=== PATIENT | female | born 1990 | race African-American/Black ===

== ENCOUNTER 2017-11-15 10:53 | Inpatient (IN) | payer SELFPAY ==
[~2017-11-15] VITALS: Ht 165.1 cm; Wt 82.7 kg
[~2017-11-15 10:53] MED LIST: IMPLANON68 MG ID; LORTAB 5/500 501 TAB PO
[2017-12-11] MEDS ORDERED: PRENATAL1 TA7 PO (22:16)
[2017-12-24] VITALS (61 sets, daily range): BP systolic 84–118; BP diastolic 47–80; PULSE 60–98; TEMP 97.2–98.4
[2017-12-24 07:51] LABS: BASO # 0.1 (0.0-0.2); BASO % 0.3 % (0.0-2.0); EOS # 0.2 (0.0-0.7); EOS % 1.3 % (0-4.0); GRAN # 12.2 (1.4-6.5); GRAN % 71.3 % (42.2-75.2); HEMATOCRIT 37.8 % (37.0-47.0); HEMOGLOBIN 13.1 g/dl (12.5-16.0); LYMPH # 3.5 (1.2-3.4); LYMPH % 20.3 % (20.0-51.0); MEAN CELL VOLUME 94 fl (80.0-100.0); MEAN CORPUSCULAR HEMOGLOBIN 33 pg (27.0-31.0); MEAN CORPUSCULAR HGB CONC 35 g/dl (33.0-37.0); MEAN PLATELET VOLUME 10.6 fl (7.4-10.4); MONO % 6.1 % (1.7-9.3); PLATELET COUNT 248 K/mm3 (130-400); RED BLOOD COUNT 4.01 M/mm3 (4.10-5.30); REDCELL DISTRIBUTION WIDTH-CV 14.4 % (11.5-14.5)
[2017-12-25] VITALS (17 sets, daily range): BP systolic 97–119; BP diastolic 53–77; PULSE 62–106; TEMP 98–98.6
[2017-12-26 08:30] VITALS: BP 109/77; PULSE 77; TEMP 98.2
[2017-12-26] MEDS ORDERED: IBU600 MG PO (08:36)
[2017-12-26] MEDS ORDERED: PERCOCET 325 MG1 TA2 PO (08:36)
== END 2017-12-26 12:20 | disposition home or self-care (01) | DRG 775 ==
LOC: EDSTATUS 12-23 09:14 → LDR 12-23 09:18 → LDRO 12-23 10:53 → LDR 12-24 07:00 → OB 12-25 03:30
PROVIDERS: Obstetrics & Gynecology
PROC: 10E0XZZ Delivery of Products of Conception, External Approach (ICD-10-PCS; principal; 2017-12-25)
PROC: 3E033VJ Introduction of Other Hormone into Peripheral Vein, Percutaneous Approach (ICD-10-PCS; 2017-12-25)
PROC: 10E0XZZ Delivery of Products of Conception, External Approach (ICD-10-PCS; 2017-12-25)
DX: O48.0 Post-term pregnancy (principal); O99.334 Smoking (tobacco) complicating childbirth; F17.210 Nicotine dependence, cigarettes, uncomplicated; Z3A.40 40 weeks gestation of pregnancy; Z37.0 Single live birth
CPT/HCPCS: J2405; J2590; J2795; J7120

== ENCOUNTER 2017-12-11 21:47 | Observation (INO) | payer MEDICAID ==
[~2017-12-11] VITALS: Ht 165.1 cm; Wt 85.9 kg
[2017-12-11 22:00] VITALS: BP 104/70; PULSE 91; TEMP 98.3
[2017-12-11 22:06] VITALS: BP 104/70; PULSE 91; TEMP 98.3
[2017-12-11] MEDS ORDERED: PRENATAL1 TA7 PO (22:16)
[2017-12-11 22:45] VITALS: BP 92/58; PULSE 78
[2017-12-11 23:30] VITALS: BP 106/55; PULSE 76
[2017-12-12] VITALS: BP 96/60; PULSE 67
== END 2017-12-12 06:20 | disposition home or self-care (01) ==
LOC: LDRO 21:47 → LDR 23:35
DX: Z03.79 Encounter for other suspected maternal and fetal conditions ruled out (principal)
CPT/HCPCS: G0378; J7120